=== PATIENT | female | born 1965 | race Caucasian/White ===

== ENCOUNTER 2016-09-06 14:09 | Emergency (ER) | payer OTHER ==
[2016-09-06 14:32] VITALS: BP 133/63; PULSE 71; RESP 18; TEMP 98; O2SAT 100
--- NOTE | 2016-09-06 14:56 | CPEKG ---
Heart Rate: 70 RR Interval: 857 P-R Interval: 152 QRSD Interval: 72 QT Interval: 412 QTC Interval: 445 P [place]: 56 QRS [place]: 50 T Wave [place]: 23 EKG Severity - NORMAL ECG - EKG Impression: SINUS RHYTHM Electronically Signed By: Giuseppe Sanchez 06-Sep-2016 15:28:00
[2016-09-06] MEDS ORDERED: NS 1,000 ML IV ONE (15:21)
--- NOTE | 2016-09-06 15:26 | UCPHY ---
H & P Patient Type: Established Chief Complaint Nursing Narrative: c/o tightness in chest x 2 days - states due to anxiety- then today this am felt dizzyness with the chest tighness and electrical shots up lt arm- denies cardiac HX- here 3 yrs ago with similar issues had full cardiac work up - Time Seen by Provider: 09/06/16 15:07 HPI/ROS: CHIEF COMPLAINT: Chest tightness and anxiety HISTORY OF PRESENT ILLNESS: Patient is a 51-year-old healthy female who comes to the Urgent Care complaining of chest tightness, anxiety and a feeling that she has a pinch in her arm almost like an IV is in her arm. She states that she has felt this way for 2 days since she returned home from a family gathering in [place]. She states that she frequent has this type of anxiety but her dose of Valium did not seem to help. This made her concerned that maybe it was something else. She has not had any recent illness or fevers. No shortness of breath. No diaphoresis, no nausea or vomiting. She did has similar symptoms 2 years ago and was seen here. She had a positive troponin and was admitted to the hospital. She had a stress test and echocardiogram that were normal. She was ultimately told that it was likely a lab error. 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 No significant cardiac history in her family however. REVIEW OF SYSTEMS: Constitutional: denies: chills, fever, recent illness, recent injury EENTM: denies: blurred vision, double vision, nose congestion Respiratory: denies: cough, shortness of breath Cardiac: See HPI Gastrointestinal/Abdominal: denies: abdominal pain, diarrhea, nausea, vomiting, blood streaked stools Genitourinary: denies: dysuria, frequency, hematuria, pain Musculoskeletal: denies: joint pain, muscle pain Skin: denies: lesions, rash, jaundice, bruising Neurological: denies: headache, numbness, paresthesia, tingling, dizziness, weakness Hematologic/Lymphatic: denies: blood clots, easy bleeding, easy bruising Immunologic/allergic: denies: HIV/AIDS, transplant EXAM: GENERAL: Well-appearing, well-nourished and in no acute distress. HEAD: Atraumatic, normocephalic. EYES: Pupils equal round and reactive to light, extraocular movements intact, sclera anicteric, conjunctiva are normal. ENT: TMs normal, nares patent, oropharynx clear without exudates. Moist mucous membranes. NECK: Normal range of motion, supple without lymphadenopathy or JVD. LUNGS: Breath sounds clear to auscultation bilaterally and equal. No wheezes rales or rhonchi. HEART: Regular rate and rhythm without murmurs, rubs or gallops. ABDOMEN: Soft, nontender, normoactive bowel sounds. No guarding, no rebound. No masses appreciated. BACK: No CVA tenderness, no spinal tenderness, step-offs or deformities EXTREMITIES: Normal range of motion, no pitting or edema. No clubbing or cyanosis. NEUROLOGICAL: Cranial nerves II through XII grossly intact. Normal speech, normal gait. 5/5 strength, normal movement in all extremities, normal sensation PSYCH: Anxious SKIN: Warm, dry, normal turgor, no visible rashes or lesions. Source: Patient Exam Limitations: No limitations - Personal History LMP (Females 10-55): Hysterectomy Current Tetanus Diphtheria and Acellular Pertussis (TDAP): Yes Tetanus Vaccine Date: 2010 - Medical/Surgical History Hx Asthma: No Hx Chronic Respiratory Disease: No Hx Diabetes: No Hx Cardiac Disease: No Hx Renal Disease: No Hx Cirrhosis: No Hx Alcoholism: No Hx HIV/AIDS: No Hx Splenectomy or Spleen Trauma: No Other PMH: HYPOTHYROIDISM, HYST, CERVICAL CA, D/CX2, MTHFR BLOOD DISORDER - Family History Significant Family History: No pertinent family hx - Social History Smoking Status: Former smoker Alcohol Use: Sober Drug Use: None Constitutional: Initial Vital Signs Temperature (C) 36.6 C 09/06/16 14:28 Heart Rate 71 09/06/16 14:28 Respiratory Rate 18 09/06/16 14:28 Blood Pressure 133/63 H 09/06/16 14:28 O2 Sat (%) 100 09/06/16 14:28 O2 Delivery Mode Room Air Allergies/Adverse Reactions: aspirin [Aspirin] Allergy (Verified 07/17/15 22:28) latex [Latex] Allergy (Verified 07/17/15 22:28) Home Medications: Medication Instructions Recorded Levothyroxine [Synthroid 75 mcg 75 mcg PO DAILY06 02/06/12 (*)] Medical Decision Making - Diagnostics EKG Interpretation: An EKG obtained and was read and documented in trace view. Please see trace view for full reading and report. Sinus rhythm, no acute ischemic changes. Imaging: X-ray: chest x-ray was obtained. I viewed the images myself on the PACS system. My interpretation of the images is: negative for acute disease . The radiologist interpretation is pending. ED Course/Re-evaluation: She initially requested Ativan but then decided she does not want any because she needs to pick her daughter from school in 1 hour. 3:55 p.m. The patient is refusing an IV and she is refusing any medication. 4:30 p.m. the patient left AMA. She does not wish to wait for her results. She has to go bead picker her child at school. Her symptoms have resolved. Differential Diagnosis: Partial list of the Differential diagnosis considered include but were not limited to; anxiety, acute coronary disease, PE, pneumonia, bronchitis, costochondritis, pleurisy and although unlikely based on the history and physical exam, I also considered sepsis, dissection, aneurysm. - Data Points Laboratory Results: Laboratory Results 09/06/16 16:05 09/06/16 16:05 09/06/16 16:05 WBC 5.54 10^3/uL (3.80-9.50) RBC 4.54 10^6/uL (4.18-5.33) Hgb 14.3 g/dL (12.6-16.3) Hct 40.9 % (38.0-47.0) MCV 90.1 fL (81.5-99.8) MCH 31.5 pg (27.9-34.1) MCHC 35.0 g/dL (32.4-36.7) RDW 12.9 % (11.5-15.2) Plt Count 353 10^3/uL (150-400) MPV 10.5 fL (8.7-11.7) Neut % (Auto) 73.1 % (39.3-74.2) Lymph % (Auto) 21.1 % (15.0-45.0) Liberty % (Auto) 4.0 L % (4.5-13.0) Eos % (Auto) 0.5 L % (0.6-7.6) Baso % (Auto) 1.1 % (0.3-1.7) Nucleat RBC Rel Count 0.0 % (0.0-0.2) Absolute Neuts (auto) 4.05 10^3/uL (1.70-6.50) Absolute Lymphs (auto) 1.17 10^3/uL (1.00-3.00) Absolute Monos (auto) 0.22 L 10^3/uL (0.30-0.80) Absolute Eos (auto) 0.03 10^3/uL (0.03-0.40) Absolute Basos (auto) 0.06 10^3/uL (0.02-0.10) Absolute Nucleated RBC 0.00 10^3/uL (0-0.01) Immature Gran % 0.2 % (0.0-1.1) Immature Gran # 0.01 10^3/uL (0.00-0.10) D-Dimer < 0.27 ug/mLFEU (0.00-0.50) Sodium 141 mEq/L (134-144) Potassium 3.9 mEq/L (3.5-5.2) Chloride 105 mEq/L (97-110) Carbon Dioxide 24 mEq/l (22-31) Anion Gap 12 mEq/L (8-16) BUN 8 mg/dL (7-23) Creatinine 0.7 mg/dL (0.6-1.0) Estimated GFR > 60 Glucose 106 H mg/dL (70-100) Calcium 9.2 mg/dL (8.5-10.4) Troponin I < 0.012 ng/mL (0-0.034) Beta HCG, Qual NEGATIVE Medications Given: Discontinued Medications Sodium Chloride (Ns) 1,000 mls @ 0 mls/hr IV ONCE ONE PRN Reason: Wide Open Stop: 09/06/16 15:22 Last Admin: 09/06/16 16:42 Dose: Not Given Departure - Departure Disposition: Against Medical Advice Clinical Impression: Anxiety Condition: Fair Instructions: Anxiety (ED) Referrals: Angelique Canela MD [Primary Care Provider] - As per Instructions - PQRS PQRS Measurement: Not applicable
--- NOTE | 2016-09-06 15:39 | DX ---
PA and Lateral Chest X-ray 1532 hours History: Chest pain and dizziness for 2 days. Comparison prior study of May 04, 2015. Findings: Heart size and pulmonary vasculature are normal. The lungs are clear without infiltrates or effusions. There is no pneumothorax. The osseous structures are intact. Impression: Normal chest x-ray.
[2016-09-06 16:34] LABS: ANION GAP 12 mEq/L (8-16); CALCIUM 9.2 mg/dL (8.5-10.4); CARBON DIOXIDE 24 mEq/l (22-31); CHLORIDE 105 mEq/L (97-110); CREATININE 0.7 mg/dL (0.6-1.0); GLOMERULAR FILTRATION RATE > 60; GLUCOSE 106 mg/dL (70-100); POTASSIUM 3.9 mEq/L (3.5-5.2); SODIUM 141 mEq/L (134-144)
[2016-09-06 16:42] LABS: % IMMATURE GRANULYOCYTES 0.2 % (0.0-1.1); ABSOLUTE IMMATURE GRANULOCYTES 0.01 10^3/uL (0.00-0.10); ADD DIFF? NO; ADD MORPH? NO; ADD SCAN? NO; ATYPICAL LYMPHOCYTE FLAG 0 (0-99); FRAGMENT RBC FLAG 0 (0-99); HEMATOCRIT 40.9 % (38.0-47.0); HEMOGLOBIN 14.3 g/dL (12.6-16.3); LEFT SHIFT FLG 0 (0-99); LIPEMIA HEMOLYSIS FLAG 90 (0-99); MEAN CELL HEMOGLOBIN 31.5 pg (27.9-34.1); MEAN CELL VOLUME 90.1 fL (81.5-99.8); MEAN PLATELET VOLUME 10.5 fL (8.7-11.7); PLATELET CLUMPS FLAG 0 (0-99); PLATELET COUNT 353 10^3/uL (150-400); RED BLOOD CELL COUNT 4.54 10^6/uL (4.18-5.33); RED CELL DISTRIBUTION WIDTH 12.9 % (11.5-15.2)
[2016-09-06 16:47] LABS: TROPONIN I < 0.012 ng/mL (0-0.034)
== END 2016-09-06 16:44 | disposition left against medical advice (07) ==
LOC: CED 14:09
DX: F41.9 Anxiety disorder, unspecified (principal); R07.89 Other chest pain; M79.603 Pain in arm, unspecified; Z87.891 Personal history of nicotine dependence
CPT/HCPCS: 71020-PO; 80048-PO; 84484-PO; 84703-PO; 85025-PO; 85378-PO; 93010-PO; 99215-PO; G0463-PO

== ENCOUNTER 2017-01-20 14:43 | Emergency (ER) | payer OTHER ==
[2017-01-20 14:55] VITALS: BP 109/72; PULSE 66; RESP 16; TEMP 97.5; O2SAT 98
[2017-01-20 15:29] LABS: COLOR YELLOW; LEUKOCYTE ESTERASE,URINE NEGATIVE (NEGATIVE); NITRITE,URINE NEGATIVE (NEGATIVE)
--- NOTE | 2017-01-20 16:05 | EDPHY ---
H & P Time Seen by Provider: 01/20/17 15:58 HPI/ROS: CHIEF COMPLAINT: Inguinal swelling HISTORY OF PRESENT ILLNESS: This patient is a 51 year old female who presents to the Emergency Department complaining of swelling and pain to her left groin area beginning two days prior to arrival and worsening over time. Her pain initially felt musculoskeletal but she subsequently developed swelling to the site. She also describes a sensation of warmth radiating superiorly from the site of the swelling. She denies any additional complaints. No vaginal discharge or urinary symptoms. Medical history includes ovarian cysts and remote history of cervical cancer with hysterectomy. REVIEW OF SYSTEMS: Constitutional: No fever, no chills ENT: No sore throat Gastrointestinal: No nausea, no vomiting, no abdominal pain Genitourinary: +inguinal swelling and pain, no vaginal discharge, no urinary complaints Musculoskeletal: No leg pain or swelling Skin: No rash Psychiatric: +anxiety, no depression Past Medical/Surgical History: 1. History of cervical cancer 2. Hysterectomy 3. Ovarian cyst 4. Hypothyroidism Social History: and daughter at bedside. Smoking Status: Former smoker Physical Exam: General Appearance: Alert, pleasant Gastrointestinal: Abdomen is soft and non-tender Genitourinary: 1cm tender lymph node in left inguinal area; smooth,not fluctuant Neurological: A&O, nonfocal, normal gait Skin: Warm and dry, no rash Psychiatric: Anxious affect Constitutional: Initial Vital Signs Temperature (C) 36.4 C 01/20/17 14:53 Heart Rate 66 01/20/17 14:53 Respiratory Rate 16 01/20/17 14:53 Blood Pressure 109/72 01/20/17 14:53 O2 Sat (%) 98 01/20/17 14:53 O2 Delivery Mode Room Air Allergies/Adverse Reactions: aspirin [Aspirin] Allergy (Verified 07/17/15 22:28) latex [Latex] Allergy (Verified 07/17/15 22:28) Home Medications: Medication Instructions Recorded Levothyroxine [Synthroid 75 mcg 75 mcg PO DAILY06 02/06/12 (*)] Medical Decision Making ED Course/Re-evaluation: This 51-year-old female presents with a 1cm swollen lymph node to her left inguinal area; it is smooth without fluctuance. She reports swelling to the site of the lymph node. She has no additional complaints. No vaginal discharge. No evidence of infection. She reports significant anxiety because of her history of cervical cancer. I discussed with her the option to proceed with US of the site; she declines this at this time. She understands that she should follow-up with her PCP for further evaluation if her swelling does not improve within the next 7 days. She will be discharged home in good condition. Differential Diagnosis: Differential diagnosis for the patient's inguinal swelling includes but is not limited to: lymphadenopathy, tumor or inguinal hernia. Departure - Departure Disposition: Home, Routine, Self-Care Clinical Impression: Inguinal lymphadenopathy Condition: Good Instructions: Lymphadenopathy (ED) Additional Instructions: 1. Take 600mg Ibuprofen every 6 hours as needed for pain or swelling. 2. Like we discussed, your lymph node swelling is likely due to an infection. This should subside on its own. If it does not improve in the next 7 days, I recommend that you follow-up with your primary care provider for further evaluation. 2. Return to the Emergency Department if you develop vaginal discharge, increasing pain or swelling, or other serious complaints. Referrals: Kailee Katz MD [Medical Doctor] - As per Instructions Report Scribed for: Caitlin Pruitt Report Scribed by: Selina Callaway Date of Report: 01/20/17 Time of Report: 16:04 Physician Review and Approval Statement: 01/20/17 16:04 Portions of this note were transcribed by a medical staff assistant. I personally performed a history, physical exam, medical decision making, and confirmed accuracy of information the transcribed note.
== END 2017-01-20 16:30 | disposition home or self-care (01) ==
DX: R59.1 Generalized enlarged lymph nodes (principal); Z87.891 Personal history of nicotine dependence; Z85.41 Personal history of malignant neoplasm of cervix uteri; Z90.710 Acquired absence of both cervix and uterus; Z91.040 Latex allergy status

== ENCOUNTER → 2017-02-20 | Outpatient (CLI) | payer OTHER | LOC: BMCIMAGING 11:09 | PROVIDERS: ATTEND Podiatrist Foot & Ankle Surgery | DX: M25.571 Pain in right ankle and joints of right foot (principal); M25.572 Pain in left ankle and joints of left foot ==

== ENCOUNTER → 2017-03-02 | Outpatient (CLI) | payer OTHER | LOC: FIMAGING 12:46 | PROVIDERS: ATTEND Obstetrics & Gynecology | DX: Z12.31 Encounter for screening mammogram for malignant neoplasm of breast (principal) | CPT/HCPCS: G0202 ==

== ENCOUNTER → 2017-03-16 | Outpatient (CLI) | payer OTHER | LOC: FIMAGING 11:42 | PROVIDERS: ATTEND Obstetrics & Gynecology | DX: Z03.89 Encounter for observation for other suspected diseases and conditions ruled out (principal) | CPT/HCPCS: G0206 ==

== ENCOUNTER 2017-05-03 19:30 | Emergency (ER) | payer OTHER ==
--- NOTE | 2017-05-03 20:38 | EDPHY ---
H & P Stated Complaint: L leg pain behind knee, going on for weeks, worsening Time Seen by Provider: 05/03/17 19:42 HPI/ROS: CHIEF COMPLAINT: Left leg pain HISTORY OF PRESENT ILLNESS: 51-year-old female presents emergency department complaining of pain and fullness behind her left knee extending down into her calf. This is been going on for 2 weeks. Worse with activity. Patient reports a new injury from running a couple years ago where she sustained mcl tear. She denies numbness or tingling in this leg. No fevers or chills. Patient does not smoke cigarettes, she does not take hormones. She did have a 12 hour car ride 2 weeks ago just before her pain began. Patient denies chest pain or shortness of breath. REVIEW OF SYSTEMS: A comprehensive 10 point review of systems is otherwise negative aside from elements mentioned in the history of present illness. Source: Patient Exam Limitations: No limitations - Personal History LMP (Females 10-55): Hysterectomy Current Tetanus/Diphtheria Vaccine: Yes Tetanus Vaccine Date: 2010 - Medical/Surgical History Hx Asthma: No Hx Chronic Respiratory Disease: No Hx Diabetes: No Hx Cardiac Disease: No Hx Renal Disease: No Hx Cirrhosis: No Hx Alcoholism: No Hx HIV/AIDS: No Hx Splenectomy or Spleen Trauma: No Other PMH: PMHx: HYPOTHYROIDISM, HYST, CERVICAL CA, D/CX2, MTHFR BLOOD DISORDER - Social History Smoking Status: Former smoker - Physical Exam Exam: GEN: Awake, alert, oriented, no acute distress RESP: nl resp effort MSK: Left knee with mild tenderness to medial joint line, negative medial Eryn, negative lateral Juno, negative anterior drawer, negative Reggie's , tenderness to popliteal fossa and proximal calf, no swelling SKIN: no rash, no break in skin. Constitutional: Initial Vital Signs Temperature (C) 37.2 C 05/03/17 19:34 Heart Rate 58 L 05/03/17 19:34 Respiratory Rate 14 05/03/17 19:34 Blood Pressure 120/69 05/03/17 19:34 O2 Sat (%) 98 05/03/17 19:34 O2 Delivery Mode Room Air Allergies/Adverse Reactions: aspirin [Aspirin] Allergy (Verified 07/17/15 22:28) latex [Latex] Allergy (Verified 07/17/15 22:28) Home Medications: Medication Instructions Recorded Levothyroxine [Synthroid 75 mcg 75 mcg PO DAILY06 02/06/12 (*)] Medical Decision Making - Diagnostics Imaging: Discussed imaging studies w/ gut carrier Radiologist Departure - Departure Disposition: Home, Routine, Self-Care Clinical Impression: Kothari's cyst of knee Qualifiers: Laterality: left Qualified Code(s): M71.22 - Synovial cyst of popliteal space [ Kothari], left knee Condition: Good Instructions: Bakers Cyst (ED) Additional Instructions: Rest, ice, elevate, wear Janusz wrap for compression. Follow up with Dr. Garcia for symptoms that are not improving in the next 7-10 days. Return for any worsening symptoms, new symptoms or concerns. Referrals: Javed Garcia MD [Medical Doctor] - As per Instructions
[2017-05-03 21:36] VITALS: RESP 20
[2017-05-03 22:06] VITALS: BP 109/57; PULSE 96; TEMP 98.6; O2SAT 97
== END 2017-05-03 22:05 | disposition home or self-care (01) ==
DX: M71.22 Synovial cyst of popliteal space [Baker], left knee (principal); Z85.41 Personal history of malignant neoplasm of cervix uteri; Z87.891 Personal history of nicotine dependence; Z91.040 Latex allergy status

== ENCOUNTER 2017-11-04 14:48 | Emergency (ER) | payer OTHER ==
--- NOTE | 2017-11-04 15:33 | EDPHY ---
H & P Stated Complaint: running tripped impacted chest and l uq abd Time Seen by Provider: 11/04/17 15:14 HPI/ROS: CHIEF COMPLAINT: Left chest and abdominal pain after falling HISTORY OF PRESENT ILLNESS: This is a 52-year-old female who was running at high speed, tripped, and fell forward with her arms outstretched. She landed flat. This occurred about 2 hr ago. She has taken 3 ibuprofen since this occurred. She presents complaining of left upper abdominal, lower ribcage pain and abdominal pain, primarily lower abdomen. She has mild nausea, no vomiting. She does not feel short of breath. REVIEW OF SYSTEMS: A ten point review of systems was performed and is negative with the exception of the items mentioned in the HPI. Past medical history: 1. Cervical cancer status post hysterectomy 2. Hypothyroidism 3. MTHFR mutation Past surgical history: Hysterectomy, ovaries spared Social history: She lives with her and daughter. No tobacco use. General Appearance: Alert. Vital signs reviewed. Head: Normocephalic atraumatic. * Eyes: Pupils equal and round, no conjunctival injection, no discharge. Anicteric. ENT, Mouth: Mucous membranes are moist, no oropharyngeal erythema or edema. Neck: Nontender to palpation over the cervical spine. Respiratory: Lungs are clear to auscultation; no wheezes, rales, or rhonchi. Thorax: Tender to palpation over the anterolateral lower ribcage on the left. No crepitus. Cardiovascular: Regular rate and rhythm; no murmur, rub, or gallop. Gastrointestinal: Abdomen is diffusely tender, more so in the the lower abdomen , no masses or organomegaly, bowel sounds normal. Skin: Warm and dry, no rashes on exposed skin, normal color. Abrasions over the abdomen. Back: Nontender to palpation over the thoracolumbar spine. No CVAT. Extremities: Abrasion over the right patella. Superficial laceration, 1 cm, left medial patella. Full active range of motion of both knees. Neurological: Alert and oriented. Moving all four extremities easily and equally. Are 5 strength in all 4 extremities. Sensation intact to light touch. Psychiatric: Normal affect. - Personal History LMP (Females 10-55): Hysterectomy Current Tetanus/Diphtheria Vaccine: Yes Tetanus Vaccine Date: 2010 - Medical/Surgical History Hx Asthma: No Hx Chronic Respiratory Disease: No Hx Diabetes: No Hx Cardiac Disease: No Hx Renal Disease: No Hx Cirrhosis: No Hx Alcoholism: No Hx HIV/AIDS: No Hx Splenectomy or Spleen Trauma: No Other PMH: PMHx: HYPOTHYROIDISM, HYST, CERVICAL CA, D/CX2, MTHFR BLOOD DISORDER - Social History Smoking Status: Former smoker Constitutional: Initial Vital Signs Temperature (C) 37 C 11/04/17 15:03 Heart Rate 66 11/04/17 15:03 Respiratory Rate 17 11/04/17 15:03 Blood Pressure 119/79 11/04/17 15:03 O2 Sat (%) 99 11/04/17 15:03 O2 Delivery Mode Room Air Allergies/Adverse Reactions: aspirin [Aspirin] Allergy (Verified 11/04/17 15:02) latex [Latex] Allergy (Verified 11/04/17 15:02) Home Medications: Medication Instructions Recorded Levothyroxine [Synthroid 75 mcg 75 mcg PO DAILY06 02/06/12 (*)] Medical Decision Making - Diagnostics Imaging Results: Imaging Impressions Abdomen CT 11/04/17 15:33 Impression: 1. No evidence of abdominal or pelvic hemorrhage or organ laceration. 2. No splenic laceration or definite lower rib fracture on the multiplanar reconstructions. 3. No pelvic bone fracture or pelvic fluid collections. Findings and recommendations discussed with Emergency Department physician, Dr. Princess Momin at 1626 hours on November 04, 2017. Final report concurs with initial preliminary interpretation. Chest X-Ray 11/04/17 15:33 Impression: Normal. Knee X-Ray 11/04/17 15:33 Impression: Normal. If there is further clinical concern regarding the patient's knee pain, MR imaging could be considered. Imaging: Discussed imaging studies w/ scallop cutter Radiologist, I viewed and interpreted images myself ED Course/Re-evaluation: Patient declined pain medication. She was initially reluctant to lie on the structure because she felt more comfortable standing up. She was able to stretch out for my examination. On exam she has left upper quadrant and lower abdominal bilateral pain--no guarding but she is reluctant to let me examine her. CT scan of the abdomen and pelvis was obtained and reported to me by Dr. Eladio Escalante. It is negative for traumatic injury. Lower ribcage can be visualized on the CT scan there is no evidence of rib fracture. No splenic injury. I reviewed her chest x-ray. No pneumothorax. I have also reviewed her left knee x-ray. No bony injury. She does not want to take pain medication. Differential Diagnosis: I considered a differential diagnosis that includes but is not limited to rib fracture, pneumothorax, intra-abdominal injury, specifically splenic injury, abdominal wall hematoma, bony injury, and contusion. Departure - Departure Disposition: Home, Routine, Self-Care Clinical Impression: Contusion Qualifiers: Encounter type: initial encounter Contusion area: abdominal wall Qualified Code (s): S30.1XXA - Contusion of abdominal wall, initial encounter Condition: Good Instructions: Contusion in Adults (ED), Abrasion (ED) Additional Instructions: Adult Pain & Fever Control: We recommend Acetaminophen (Tylenol) and Ibuprofen (Motrin,Advil) for pain and fever control. When fever is high or pain severe, both drugs can be used at the same time, but at different intervals. Please note the time differences. Your dose is: Acetaminophen 650mg every 4 to 6 hours Ibuprofen 400mg every 6 hours with food OR Note: do not take Acetaminophen with Hydrocodone (Vicodin, Lortab) or Oycodone (Percocet). These medications also contain Acetaminophen. No more than 3000mg of Acetaminophen should be taken in 24 hours (for an adult). Return for re-evaluation if you developed vomiting, shortness of breath, worsening pain, new numbness, new weakness, any concerning symptoms. As we discussed, you can expect to feel worse over the next few days. You might develop new aches and pains, do not be alarmed. Referrals: Kailee Katz MD [Primary Care Provider] - As per Instructions
[2017-11-04] MEDS ORDERED: IOPAMIDOL (ISOVUE-300) 100 ML BTL ONE (16:00)
[2017-11-04 16:32] VITALS: BP 126/76; PULSE 82; RESP 18; O2SAT 97
[2017-11-04 16:52] VITALS: TEMP 98.6
== END 2017-11-04 16:52 | disposition home or self-care (01) ==
DX: S30.1XXA Contusion of abdominal wall, initial encounter (principal); Z85.41 Personal history of malignant neoplasm of cervix uteri; Z87.891 Personal history of nicotine dependence; Z91.040 Latex allergy status; Z90.710 Acquired absence of both cervix and uterus; W01.0XXA Fall on same level from slipping, tripping and stumbling without subsequent striking against object, initial encounter; Y99.8 Other external cause status; Y93.02 Activity, running
CPT/HCPCS: Q9967

== ENCOUNTER 2018-08-12 18:34 | Emergency (ER) | payer OTHER ==
--- NOTE | 2018-08-12 18:54 | EDPHY ---
H & P Stated Complaint: LUMP AT BACK OF NECK AND BACK OF L KNEE/CONCERNED R/T CLOTS Source: Patient Exam Limitations: No limitations - Personal History LMP (Females 10-55): Hysterectomy Current Tetanus Diphtheria and Acellular Pertussis (TDAP): Yes Tetanus Vaccine Date: 2010 - Medical/Surgical History Hx Asthma: No Hx Chronic Respiratory Disease: No Hx Diabetes: No Hx Cardiac Disease: No Hx Renal Disease: No Hx Cirrhosis: No Hx Alcoholism: No Hx HIV/AIDS: No Hx Splenectomy or Spleen Trauma: No Other PMH: PMHx: HYPOTHYROIDISM, HYST, CERVICAL CA, D/CX2, MTHFR BLOOD DISORDER - Social History Smoking Status: Former smoker Time Seen by Provider: 08/12/18 18:54 HPI/ROS: HPI: This is a 53-year-old female who presents with Chief Complaint: LUMP AT BACK OF NECK AND BACK OF L KNEE/CONCERNED R/T CLOTS Location: Back of knee, back of left side of neck Quality: Lump Duration: Several days Signs and Symptoms: no fever, no nausea, no vomiting, no diarrhea, no urinary symptoms, no chest pain, no shortness of breath, no wheezing, no cough, no sore throat, no neck stiffness, no joint pain, no ear pain, no rash, no decreased range of motion, no weakness, no radiation, no headache Timing: Acute, constant Severity: Mild Context: Patient has a history of MTHFR blood disorder, 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 She denies any upper respiratory symptoms, fever, cough, sore throat. No weight loss or night sweats. She reports that she is extremely healthy and works out often. She has not taking any lip recent long distance trips and is a nonsmoker. She is not on hormone replacement therapy. She went to the urgent care for evaluation was sent to the ER. Patient has had no recent injury or trauma. She denies any actual pain behind her left knee or left leg. Modifying Factors: None Comment: ROS: A comprehensive 10 system review of systems is otherwise negative aside from elements mentioned in the history of present illness. MEDICAL/SURGICAL/SOCIAL HISTORY: Medical history: HYPOTHYROIDISM, HYST, CERVICAL CA, D/CX2, MTHFR BLOOD DISORDER Surgical history: Hysterectomy Social history: with children. Denies drug, alcohol, tobacco, caffeine use. Family history noncontributory. CONSTITUTIONAL: Extremely polite and cooperative middle-aged white female, physically fit, awake and alert, no obvious distress HEENT: Atraumatic and normocephalic, PERRL, EOMI. Nares patent; no rhinorrhea; no nasal mucosal edema. Tympanic membranes clear. Oropharynx clear, no tonsillar hypertrophy, no exudate and moist pink mucosa. Airway patent. Left posterior chain small 2 mm mobile single lymphadenopathy. No meningismus. Cardiovascular: Normal S1/S2, regular rate, regular rhythm, without murmur rub or gallop. PULMONARY/CHEST: Symmetrical and nontender. Clear to auscultation bilaterally. Good air movement. No accessory muscle usage. ABDOMEN: Soft, nondistended, nontender, no rebound, no guarding, no peritoneal signs, no masses or organomegaly. No CVAT. EXTREMITIES: 2/2 pedal pulses, strength 5/5, left KNEE: no effusion, no medial and lateral joint line tenderness, full extension to 180, flexion to 120. No pain with varus and valgus exam. No pain with anterior drawer or posterior drawer test. Extensor mechanism intact. no deformities, no clubbing, no cyanosis or edema. NEUROLOGICAL: no focal neuro deficits. GCS 15. SKIN: Warm and dry, no erythema. no rash. Good capillary refill. (oZraida Adams) Constitutional: Initial Vital Signs Temperature (C) 36.8 C 08/12/18 18:46 Heart Rate 58 L 08/12/18 18:46 Respiratory Rate 18 08/12/18 18:46 Blood Pressure 114/79 08/12/18 18:46 O2 Sat (%) 100 08/12/18 18:46 O2 Delivery Mode Room Air Allergies/Adverse Reactions: aspirin [Aspirin] Allergy (Verified 08/12/18 18:45) latex [Latex] Allergy (Verified 08/12/18 18:45) Home Medications: Medication Instructions Recorded Levothyroxine [Synthroid 75 mcg 75 mcg PO DAILY06 02/06/12 (*)] Medical Decision Making - Diagnostics Imaging Results: Imaging Impressions Extremity Venous Study 08/12/18 19:12 Impression: 1. No deep vein thrombosis in the left lower extremity. 2. Simple Kothari cyst, somewhat smaller than 16 months ago. Results communicated to OLGA LIDIA Ricketts. ED Course/Re-evaluation: Vital signs reviewed and stable upon arrival. No systemic signs. Long discussion regarding single enlarged lymph node with no systemic signs. Patient prefers to follow up with PCP Tyra Avina in the next 1-2 weeks for close monitoring instead of imaging which I deem is reasonable. Left lower extremity ultrasound ordered and per radiologist shows no DVT. No signs of neurovascular compromise/tenting of skin/compartment syndrome/ extremities and joints examined above and below area of concern and are neurovascularly intact. This patient was seen under the supervision of my secondary supervising physician. I evaluated care for this patient independently. Discussed this patient with Dr. Saavedra who did not see the patient. (Zoraida Adams) I did not see this patient while she was in the emergency department. However her care was discussed with the PA while the patient was in the department. I agree with treatment plan and management (Pradip Saavedra) Differential Diagnosis: Leg swelling including but not limited to hypoalbuminemia, congestive heart failure, cor pulmonale, chronic venous stasis and DVT. (Zoraida Adams) Departure - Departure Disposition: Home, Routine, Self-Care Clinical Impression: Posterior cervical lymphadenopathy, Synovial cyst of popliteal space [Kothari], left knee Condition: Good Instructions: Lymphadenopathy (ED) Additional Instructions: Take Tylenol 650 mg every 4 hours and/or Ibuprofen 600 mg every 8 hours with food as needed for pain. Apply warm compresses for 30 minutes at a time; 2-3 times per day for the next 1 -2 days. Follow up with Tyra Avina in 1-2 weeks if lymph node persist or enlarges. Referrals: Tyra Avina MD [Primary Care Provider] - As per Instructions
[2018-08-12 20:24] VITALS: BP 118/60
== END 2018-08-12 20:24 | disposition home or self-care (01) ==
DX: R59.1 Generalized enlarged lymph nodes (principal); M71.22 Synovial cyst of popliteal space [Baker], left knee; E03.9 Hypothyroidism, unspecified; Z87.891 Personal history of nicotine dependence